=== PATIENT | female | born 1995 | race African-American/Black ===

== ENCOUNTER 2016-12-20 18:32 | Emergency (ER) | payer MEDICAID ==
[2016-12-20] MEDS ORDERED: ETONOGESTREL (18:48)
[2016-12-20 19:10] LABS: URINE BILIRUBIN NEGATIVE (NEG); URINE BLOOD MODERATE (NEG); URINE GLUCOSE (UA) NEGATIVE (NEG); URINE KETONE NEGATIVE (NEG); URINE LEUKOCYTE ESTERASE NEGATIVE (NEG); URINE NITRITE NEGATIVE (NEG); URINE PROTEIN SMALL (NEG)
[2016-12-20 19:11] LABS: URINE APPEARANCE CLEAR; URINE COLOR YELLOW
[2016-12-20 19:16] LABS: URINE AMORPHOUS 1+; URINE BACTERIA 1+; URINE MUCUS 1+; URINE WBC 0-3 /[HPF] (0-5)
[2016-12-20 19:40] LABS: BASO % 0.2 % (0-2); EOS % 0.8 % (0-7); EOSINOPHIL ABSOLUTE COUNT 0.1 tho/cmm (0.0-0.7); HCT-HEMATOCRIT 35.4 % (34.0-49.0); HGB-HEMOGLOBIN 11.5 gm/dl (12.0-15.5); IMMATURE GRANULOCYTES ABSOLUTE 0.02 tho/cmm (0-0.03); IMMATURE GRANULOCYTES PERCENT 0.2 % (0-0.3); LYMPH % 10.5 % (20-45); LYMPH ABSOLUTE COUNT 1.1 tho/cmm (0.8-4.5); MCH (MEAN CORPUSCULAR HGB) 27.6 pg (28.0-32.0); MCHC MEAN CORPUSCULAR HGB CONC 32.5 % (32.0-36.0); MCV (MEAN CELL VOLUME) 85.1 fl (82.0-96.0); MEAN PLATELET VOLUME 9.8 cmc (9.4-12.4); MONO % 6.1 % (0-12); MONOCYTE ABSOLUTE COUNT 0.6 tho/cmm (0.0-1.2); NEUTROPHIL ABSOLUTE COUNT 8.4 tho/cmm (1.6-8.0); NEUTROPHIL-AUTOMATED 8.4 tho/cmm (1.6-8.0); NEUTROPHILS % 82.2 % (40-80); PLATELET COUNT 292 tho/cmm (150-450); RED BLOOD COUNT 4.16 mil/cmm (4.00-5.20); RED CELL DISTRIBUTION WIDTH 13.6 % (12.4-16.4); WHITE BLOOD COUNT 10.2 tho/cmm (4.0-10.0)
[2016-12-20 19:54] LABS: ALBUMIN 3.7 g/dl (3.5-5.0); ALKALINE PHOSPHATASE 82 U/L (33-138); ALT/SGPT 42 U/L (12-78); ANION GAP 12 mmol/L (0-20); AST/SGOT 32 U/L (10-40); BILIRUBIN,TOTAL 0.4 mg/dl (0-1.5); BLOOD UREA NITROGEN 15 mg/dl (6-24); CALCIUM 8.2 mg/dl (8.5-10.5); CARBON DIOXIDE-VENOUS 26 mmol/L (22-32); CHLORIDE 108 mmol/l (96-110); CREATININE 0.95 mg/dl (0.50-1.10); GLUCOSE 91 mg/dL (70-110); LIPASE 118 U/L (73-393); POTASSIUM 3.7 mmol/L (3.7-5.1); SODIUM 142 mmol/L (135-145); eGFR VALUE FOR BLACK >90 mL/Min
[2016-12-20] MEDS ORDERED: PRILOSEC OTC20 M1 PO (20:12)
== END 2016-12-20 20:31 ==
LOC: EDMED 18:32
PROVIDERS: Emergency Medicine; Physician Assistant
DX: K21.9 Gastro-esophageal reflux disease without esophagitis (principal)